=== PATIENT | female | born 1950 | race Two or more races ===

== ENCOUNTER 2019-09-24 11:14 | Outpatient (CLI) | payer OTHER | END 2019-09-24 11:17 | disposition home or self-care (01) | LOC: SONOGRAMA 11:14 | DX: M25.511 Pain in right shoulder (principal) ==

== ENCOUNTER 2021-08-14 12:12 | Outpatient (CLI) | payer OTHER | END 2021-08-14 12:21 | disposition home or self-care (01) | LOC: RAD 12:12 | PROVIDERS: ATTEND Family Medicine | DX: M25.521 Pain in right elbow (principal) ==

== ENCOUNTER 2021-10-30 06:52 | Day surgery (SDC) | payer OTHER | END 2021-10-30 15:15 | disposition home or self-care (01) | LOC: CIR.AMB 06:52 | PROVIDERS: ATTEND Colon & Rectal Surgery | DX: K64.3 Fourth degree hemorrhoids (principal); K64.9 Unspecified hemorrhoids; Z86.16 Personal history of COVID-19; Z88.0 Allergy status to penicillin; J45.909 Unspecified asthma, uncomplicated ==

== ENCOUNTER 2022-02-03 07:40 | Day surgery (SDC) | payer OTHER | END 2022-02-03 14:50 | disposition home or self-care (01) | LOC: AMB-ENDOS 07:40 | PROVIDERS: ATTEND Colon & Rectal Surgery | DX: D12.5 Benign neoplasm of sigmoid colon (principal); D12.3 Benign neoplasm of transverse colon; Z20.822 Contact with and (suspected) exposure to COVID-19; K64.4 Residual hemorrhoidal skin tags; M32.8 Other forms of systemic lupus erythematosus; Z88.0 Allergy status to penicillin ==

== ENCOUNTER 2023-09-05 11:50 | Inpatient (IN) | payer OTHER ==
[~2023-09-05] VITALS: Ht 162.6 cm; Wt 61.2 kg
[2023-09-05 14:11] LABS: HEMATOCRIT 44.3 % (36.0-45.00); HEMOGLOBIN 15.1 g/dL (12.0-15.00); MEAN CELL VOLUME 85.7 fL (80.00-100.00); MEAN CORPUSCULAR HEMOGLOBIN 29.2 pg (27.00-32.0); MEAN CORPUSCULAR HGB CONC 34.1 g/dl (32.0-36.0); PLATELET COUNT 415 K/uL (150-450); RED BLOOD COUNT 5.17 M/uL (4.00-6.00)
[2023-09-05 14:14] LABS: RED CELL DISTRIBUTION WIDTH 16.7 % (11.5-14.5)
[2023-09-05 14:32] LABS: INR 1.05; PARTIAL THROMBOPLASTIN TIME 35.6 SECONDS (22.0-34.0)
[2023-09-05 14:33] LABS: URINE APPEARANCE Clear; URINE BILIRRUBIN Negative (NEGATIVE); URINE BLOOD Trace; URINE COLOR Yellow; URINE GLUCOSE Negative (NEGATIVE); URINE LEUKOCYTE Negative; URINE NITRATE Negative; URINE PROTEIN Negative (NEGATIVE); URINE UROBILINOGEN 0.2 E.U./dl
[2023-09-05 14:36] LABS: ALBUMIN 3.5 gm/dL (3.4-5.0); BILIRUBIN TOTAL 0.63 mg/dL (0.3-1.2); CALCIUM 9.9 mg/dL (8.5-10.1); CREATININE SERUM 0.45 mg/dL (0.55-1.02); GFR 135.83; GLOBULINA 4.3 G/DL (2.4-3.5); MAGNESIUM 2.1 mg/dL (1.8-2.4); PHOSPHOROUS 3.4 mg/dL (2.5-4.9); POTASSIUM 4.54 mEq/L (3.5-5.1); TOTAL PROTEIN 7.8 gm/dL (6.4-8.2)
[2023-09-05 14:37] LABS: URINE BACTERIA 69.2 uL (0.0-1933); URINE EPITHELIAL CELLS 2.4 uL (0.0-38.8); URINE RBC 18.1 uL (0.0-20.8); URINE WBC 11.5 uL (0.0-23.2)
[2023-09-05 17:35] LABS: ABG PH 7.444 (7.35-7.45); ABG PO2 71.7 mmHg (80-100); ABG pCO2 35.8 mmHg (35-45); BASE EXCESS 0.4 mmol/l; SaO2 94.9 %; Tco2 25.1 mmol/l; allen test SATISFACTORY; o2 21 %; puncture site RADIAL LEFT
[2023-09-05 18:34] LABS: HEMOGLOBIN 13.6 g/dL (12.0-15.00); MEAN CELL VOLUME 86.2 fL (80.00-100.00); MEAN CORPUSCULAR HEMOGLOBIN 29.4 pg (27.00-32.0); MEAN CORPUSCULAR HGB CONC 34.1 g/dl (32.0-36.0); PLATELET COUNT 385 K/uL (150-450); RED BLOOD COUNT 4.64 M/uL (4.00-6.00); RED CELL DISTRIBUTION WIDTH 16.1 % (11.5-14.5)
[2023-09-05 18:55] LABS: CALCIUM 9.5 mg/dL (8.5-10.1); CREATININE SERUM 0.49 mg/dL (0.55-1.02); GFR 123.12; POTASSIUM 3.74 mEq/L (3.5-5.1)
[2023-09-07 09:22] LABS: HEMATOCRIT 38.3 % (36.0-45.00); MEAN CELL VOLUME 88.3 fL (80.00-100.00); MEAN CORPUSCULAR HGB CONC 33.9 g/dl (32.0-36.0); PLATELET COUNT 324 K/uL (150-450); RED BLOOD COUNT 4.34 M/uL (4.00-6.00); RED CELL DISTRIBUTION WIDTH 16.8 % (11.5-14.5)
[2023-09-08 07:04] LABS: HEMATOCRIT 35.6 % (36.0-45.00); HEMOGLOBIN 11.9 g/dL (12.0-15.00); MEAN CELL VOLUME 86.5 fL (80.00-100.00); MEAN CORPUSCULAR HEMOGLOBIN 28.9 pg (27.00-32.0); MEAN CORPUSCULAR HGB CONC 33.4 g/dl (32.0-36.0); PLATELET COUNT 311 K/uL (150-450); RED BLOOD COUNT 4.12 M/uL (4.00-6.00); RED CELL DISTRIBUTION WIDTH 16.2 % (11.5-14.5)
[2023-09-08] MEDS ORDERED: ELIQUIS2.5 MG PO (08:01)
[2023-09-08] MEDS ORDERED: PERCOCET 5-3251 EACH PO (08:01)
[2023-09-08] MEDS ORDERED: CIPRO500 MG PO (08:01)
== END 2023-09-08 13:46 | DRG 522 ==
LOC: ER 11:50 → SURH 14:19
PROVIDERS: General Practice; Internal Medicine; ADMIT Orthopaedic Surgery; ATTEND Orthopaedic Surgery
PROC: 0MBL0ZZ Excision of Right Hip Bursa and Ligament, Open Approach (ICD-10-PCS; 2023-09-06)
PROC: 0SR90JZ Replacement of Right Hip Joint with Synthetic Substitute, Open Approach (ICD-10-PCS; principal; 2023-09-06 09:30)
DX: S72.031A Displaced midcervical fracture of right femur, initial encounter for closed fracture (principal); M16.11 Unilateral primary osteoarthritis, right hip; J44.9 Chronic obstructive pulmonary disease, unspecified; Z72.0 Tobacco use; W13.3XXA Fall through floor, initial encounter; Z85.3 Personal history of malignant neoplasm of breast

== ENCOUNTER 2024-07-04 11:12 | Emergency (ER) | payer OTHER ==
[~2024-07-04] VITALS: Ht 157.5 cm; Wt 68.0 kg
[~2024-07-04 11:12] MED LIST: CIPRO500 MG PO; ELIQUIS2.5 MG PO; PERCOCET 5-3251 EACH PO
[2024-07-04] MEDS ORDERED: 0.9 % SODIUM CHLORIDE 1,000 ML IV STA (11:54)
[2024-07-04] MEDS ORDERED: LEVALBUTEROL HCL 1.25 MG/3 ML SOLUTION IH STA (11:54)
[2024-07-04] MEDS ORDERED: BUDESONIDE 0.5 MG/2 ML AMPUL.NEB IH STA (11:55)
[2024-07-04] MEDS ORDERED: METHYLPREDNISOLONE SOD SUCC 125 MG VIAL IV STA (11:55)
[2024-07-04] MEDS ORDERED: HYDROCODONE/CHLORPHEN P-STIREX 5 ML ML PO STA (11:56)
[2024-07-04] MEDS ORDERED: MAGNESIUM SULFATE IN WATER 50 ML IV ONE (12:00)
[2024-07-04 12:59] LABS: ABG PH 7.319 (7.35-7.45); ABG PO2 65.1 mmHg (80-100); BASE EXCESS 10.3 mmol/l; BICARBONATE 40.3 mmol/l (23-25); SaO2 91.1 %; Tco2 42.7 mmol/l
[2024-07-04 13:17] LABS: HEMATOCRIT 40.1 % (36.0-45.00); MEAN CELL VOLUME 81.7 fL (80.00-100.00); MEAN CORPUSCULAR HEMOGLOBIN 26.5 pg (27.00-32.0); MEAN CORPUSCULAR HGB CONC 32.5 g/dl (32.0-36.0); PLATELET COUNT 394 K/uL (150-450); RED BLOOD COUNT 4.91 M/uL (4.00-6.00); RED CELL DISTRIBUTION WIDTH 15.2 % (11.5-14.5)
[2024-07-04 13:48] LABS: PH,URINE 6.5 (5.0-8.0); URINE APPEARANCE Clear; URINE BILIRRUBIN Negative (NEGATIVE); URINE BLOOD Negative; URINE COLOR Yellow; URINE GLUCOSE Negative (NEGATIVE); URINE KETONE Negative (NEGATIVE); URINE LEUKOCYTE Negative; URINE NITRATE Negative; URINE PROTEIN Negative (NEGATIVE); URINE UROBILINOGEN 0.2 E.U./dl
[2024-07-04 13:51] LABS: URINE BACTERIA 16.3 uL (0.0-1933); URINE EPITHELIAL CELLS 3.5 uL (0.0-38.8); URINE RBC 5.1 uL (0.0-20.8)
[2024-07-04 13:54] LABS: ABG pCO2 80.2 mmHg (35-45); allen test SATISFACTORY; o2 36 %; puncture site RADIAL LEFT
[2024-07-04 14:28] LABS: ALBUMIN 2.9 gm/dL (3.4-5.0); BILIRUBIN TOTAL 0.29 mg/dL (0.3-1.2); BILIRUBIN,CONJUGATED 0.11 mg/dL (0.0-0.2); BILIRUBIN,UNCONJUGATED 0.18 mg/dL (0.0-0.6); CALCIUM 9.1 mg/dL (8.5-10.1); CREATININE SERUM 0.3 mg/dL (0.55-1.02); GFR 216.87; POTASSIUM 3.97 mEq/L (3.5-5.1); TOTAL PROTEIN 6.4 gm/dL (6.4-8.2)
[2024-07-04 15:50] VITALS: BP 113/51; O2SAT 96
[2024-07-04] MEDS ORDERED: LEVALBUTEROL HCL 1.25 MG/3 ML SOLUTION IH ONE (19:00)
[2024-07-04] MEDS ORDERED: BUDESONIDE 0.5 MG/2 ML AMPUL.NEB IH ONE (19:00)
== END 2024-07-04 19:57 | disposition home or self-care (01) ==
LOC: ER 11:12
PROVIDERS: General Practice
DX: J44.1 Chronic obstructive pulmonary disease with (acute) exacerbation (principal); Z88.0 Allergy status to penicillin; I10 Essential (primary) hypertension; Z85.89 Personal history of malignant neoplasm of other organs and systems; J45.901 Unspecified asthma with (acute) exacerbation; C50.919 Malignant neoplasm of unspecified site of unspecified female breast; C78.00 Secondary malignant neoplasm of unspecified lung
CPT/HCPCS: 36415; 71250; 82803; 93005; 94640; 96365; 96366; 99284; J3475; J3490; J7030